=== PATIENT | male | born 1975 | race African-American/Black ===

== ENCOUNTER 2018-03-30 10:59 | Emergency (ER) | payer OTHER, MEDICAID ==
[~2018-03-30] VITALS: Ht 182.9 cm; Wt 112.5 kg
[2018-03-30 11:10] VITALS: BP 149/83; Ht 182.9 cm; Wt 112.5 kg
== END 2018-03-30 12:35 | disposition left against medical advice (07) ==
LOC: ED 10:59
DX: Z53.21 Procedure and treatment not carried out due to patient leaving prior to being seen by health care provider (principal)